=== PATIENT | female | born 1995 | race African-American/Black ===

== ENCOUNTER 2016-12-06 18:58 | Emergency (ER) | payer SELFPAY ==
[~2016-12-06] VITALS: Ht 149.9 cm; Wt 81.6 kg
[2016-12-06 19:12] VITALS: BP 133/77
[2016-12-06 19:27] LABS: BILIRUBIN,URINE NEGATIVE (NEG); GLUCOSE,URINE NEGATIVE (NEG); NITRITE,URINE NEGATIVE (NEG); PROTEIN,URINE NEGATIVE (NEG-TRACE); UROBILINOGEN,URINE 0.2 mg/dL (0.2 mg/dL)
[2016-12-06 19:34] LABS: BACTERIA,URINE FEW /HPF (0-FEW); RBC,URINE 20-40 /HPF (0-2); SQUAMOUS EPITHELIAL CELL,UR FEW /LPF
--- NOTE | 2016-12-06 19:34 | PHYS DOC ---
Past Medical History Past Medical History: No Pertinent History Past Surgical History: No Surgical History Alcohol Use: None Drug Use: None Adult General Chief Complaint Chief Complaint: VAGINAL BLEEDING HPI HPI Patient is a 21 year old female who presents with vaginal bleeding. Patient reports she had her last normal menstrual cycle in July, however it is not unusual for her to have significantly irregular periods, so she did not think too much about it. In October she took a test at home that was positive. However, due to work issues she was not able to see an ObGyn yet. She says one week ago she started having some light spotting, which increased to normal period-like bleeding yesterday and today. She says she has occasional sharp pelvic pains; no pain at this time, no clear inciting factors. No prior pregnancies. Review of Systems Review of Systems Constitutional: Denies fever or chills Eyes: Denies change in visual acuity or eye pain HENT: Denies nasal congestion or sore throat Respiratory: Denies cough or shortness of breath Cardiovascular: Denies chest pain GI: Denies abdominal pain, nausea, vomiting, bloody stools or diarrhea : Vaginal bleeding, occasional sharp pelvic pains Musculoskeletal: Denies back pain or joint pain Integument: Denies rash or skin lesions Neurologic: Denies headache, focal weakness or sensory changes Current Medications Current Medications Current Medications Medications (Trade) Dose Ordered Sig/Yuliet Start Time Stop Time Status Last Admin Dose Admin Potassium Chloride (Klor-Con) 20 meq 1X ONCE 12/06/16 21:00 12/06/16 21:01 Allergies Allergies Allergies Coded Allergies Type Severity Reaction Last Updated Verified Penicillins Allergy Unknown Hives 11/12/14 No Physical Exam Physical Exam Constitutional: Well developed, well nourished, no acute distress, non-toxic appearance HENT: Normocephalic, atraumatic, bilateral external ears normal Eyes: EOMI, conjunctiva normal, no discharge Neck: Normal range of motion, no stridor Cardiovascular: Heart rate normal, regular rhythm, no murmur Lungs & Thorax: Bilateral breath sounds clear to auscultation Abdomen: Bowel sounds normal, soft, non-distended, no TTP Pelvic: Scant dark blood in vault, no CMT or adnexal tenderness Skin: Warm, dry, no erythema, no rash Extremities: No obvious deformity, no edema Neurologic: Alert and oriented X 3, no gross deficits noted Psychologic: Affect normal, judgement normal, mood normal Current Patient Data Vital Signs Vital Signs Date Time Temp Pulse Resp B/P Pulse Ox O2 Delivery O2 Flow Rate FiO2 12/06/16 19:12 98.1 71 18 133/77 100 Room Air 98.1 Lab Values Laboratory Tests Test 12/06/16 19:05 12/06/16 19:10 12/06/16 19:40 Urine Collection Type Unknown Urine Color Yellow Urine Clarity Clear Urine pH 7.0 Urine Specific [place] 1.015 Urine Protein Negativemg/dL (NEG-TRACE) Urine Glucose (UA) Negativemg/dL (NEG) Urine Ketones (Stick) Tracemg/dL (NEG) Urine Blood Large (NEG) Urine Nitrite Negative (NEG) Urine Bilirubin Negative (NEG) Urine Urobilinogen Dipstick 0.2mg/dL (0.2 mg/dL) Urine Leukocyte Esterase Large (NEG) Urine RBC 20-40/HPF (0-2) Urine WBC 5-10/HPF (0-4) Urine Squamous Epithelial Cells Few/LPF Urine Bacteria Few/HPF (0-FEW) Urine Mucus Mod/LPF POC Urine HCG, Qualitative Hcg negative (Negative) White Blood Count 14.9x10^3/uL (4.0-11.0) H Red Blood Count 5.75x10^6/uL (3.50-5.40) H Hemoglobin 12.9g/dL (12.0-15.5) Hematocrit 41.0% (36.0-47.0) Mean Corpuscular Volume 71fL (79-100) L Mean Corpuscular Hemoglobin 22pg (25-35) L Mean Corpuscular Hemoglobin Concent 31g/dL (31-37) Red Cell Distribution Width 20.4% (11.5-14.5) H Platelet Count 281x10^3/uL (140-400) Neutrophils (%) (Auto) 72% (31-73) Lymphocytes (%) (Auto) 20% (24-48) L Monocytes (%) (Auto) 7% (0-9) Eosinophils (%) (Auto) 1% (0-3) Basophils (%) (Auto) 1% (0-3) Neutrophils # (Auto) 10.7x10^3uL (1.8-7.7) H Lymphocytes # (Auto) 3.0x10^3/uL (1.0-4.8) Monocytes # (Auto) 1.0x10^3/uL (0.0-1.1) Eosinophils # (Auto) 0.2x10^3/uL (0.0-0.7) Basophils # (Auto) 0.1x10^3/uL (0.0-0.2) Platelet Estimate Adequate (ADEQUATE) Hypochromasia Mod Anisocytosis Mod Microcytosis Mod Macrocytosis Maternal Serum HCG Beta Subunit 1mIU/mL (0-6) Sodium Level 143mmol/L (136-145) Potassium Level 3.4mmol/L (3.5-5.1) L Chloride Level 103mmol/L (98-107) Carbon Dioxide Level 30mmol/L (21-32) Anion Gap 10 (6-14) Blood Urea Nitrogen 6mg/dL (7-20) L Creatinine 0.7mg/dL (0.6-1.0) Estimated GFR (Cockcroft-Gault) 129.1 BUN/Creatinine Ratio 9 (6-20) Glucose Level 83mg/dL (70-99) Calcium Level 9.5mg/dL (8.5-10.1) Total Bilirubin 0.4mg/dL (0.2-1.0) Aspartate Amino Transferase (AST) 18U/L (15-37) Alanine Aminotransferase (ALT) 25U/L (14-59) Alkaline Phosphatase 128U/L (46-116) H Total Protein 8.9g/dL (6.4-8.2) H Albumin 3.9g/dL (3.4-5.0) Albumin/Globulin Ratio 0.8 (1.0-1.7) L Laboratory Tests 12/06/16 19:40 Laboratory Tests 12/06/16 19:40 Microbiology 12/06/16 Wet Prep - Final, Complete EKG EKG [] Radiology/Procedures Radiology/Procedures [] Course & Med Decision Making Course & Med Decision Making Pertinent Labs and Imaging studies reviewed. (See chart for details) Patient is 21 year old female who presents with vaginal bleeding. Possible menstrual cycle, possible miscarriage. Urine preg test in ED negative. Serum beta hcg level is 1, so effectively negative. UA with bacteria present, but patient denies symptoms of UTI so will not treat but will await culture. Labs otherwise notable for leukocytosis, mild hypokalemia. Oral potassium replacement ordered. Discussed results with patient, who remains asymptomatic except for bleeding. Will plan discharge with instructions for follow up with ObGyn, return precautions. Dragon Disclaimer Dragon Disclaimer This electronic medical record was generated, in whole or in part, using a voice recognition dictation system. Departure Departure Impression: Primary Impression: Abnormal menstrual cycle Disposition: HOME, SELF-CARE Condition: STABLE Referrals: ROSSY PORTILLO Jr, MD Patient Instructions: Abnormal Uterine Bleeding Additional Instructions: Thank you for allowing us to provide care today in the Emergency Department. Schedule a follow up appointment with an ObGyn using the provided contact information. Return promptly to the Emergency Department if you develop any new or concerning symptoms. JENNIFER VELEZ MD Dec 06, 2016 19:33
[2016-12-06 19:51] LABS: BASO # 0.1 x10^3/uL (0.0-0.2); BASO % 1 % (0-3); EOS % 1 % (0-3); HEMOGLOBIN 12.9 g/dL (12.0-15.5); LYMPH % 20 % (24-48); MEAN CORPUSCULAR HEMOGLOBIN 22 pg (25-35); MEAN CORPUSCULAR HGB CONC 31 g/dL (31-37); MEAN CORPUSCULAR VOLUME 71 fL (79-100); MONO % 7 % (0-9); NEUT % 72 % (31-73); PLATELET COUNT 281 x10^3/uL (140-400); RED BLOOD COUNT 5.75 x10^6/uL (3.50-5.40); RED CELL DISTRIBUTION WIDTH 20.4 % (11.5-14.5); WHITE BLOOD COUNT 14.9 x10^3/uL (4.0-11.0)
[2016-12-06 20:06] LABS: CALCIUM 9.5 mg/dL (8.5-10.1); CREATININE 0.7 mg/dL (0.6-1.0); GFR 129.1; POTASSIUM 3.4 mmol/L (3.5-5.1)
[2016-12-06 20:11] LABS: ALBUMIN 3.9 g/dL (3.4-5.0); ALBUMIN/GLOBULIN RATIO 0.8 (1.0-1.7); TOTAL BILIRUBIN 0.4 mg/dL (0.2-1.0); TOTAL PROTEIN 8.9 g/dL (6.4-8.2)
[2016-12-06 20:24] LABS: ANISOCYTOSIS MOD; HYPOCHROMIA MOD; MICROCYTOSIS MOD; PLT ESTIMATE ADEQUATE (ADEQUATE)
[2016-12-06] MEDS ORDERED: POTASSIUM CHLORIDE 20 MEQ TABLET.ER. PO ONE (21:00)
== END 2016-12-06 21:03 | disposition home or self-care (01) ==
LOC: ER 18:58
DX: N93.9 Abnormal uterine and vaginal bleeding, unspecified (principal); R10.2 Pelvic and perineal pain; E87.6 Hypokalemia; D72.829 Elevated white blood cell count, unspecified
CPT/HCPCS: 80053; 81001; 81025; 84702; 85007; 85027; 86900; 86901; 87086; 99284; Q0111; 36415; 87491; 87591

== ENCOUNTER 2017-05-25 08:34 | Emergency (ER) | payer SELFPAY ==
[~2017-05-25] VITALS: Ht 149.9 cm; Wt 81.6 kg
[2017-05-25 08:50] VITALS: BP 142/66
[2017-05-25 09:37] LABS: BASO # 0.1 x10^3/uL (0.0-0.2); BASO % 1 % (0-3); EOS % 3 % (0-3); HEMATOCRIT 38.9 % (36.0-47.0); HEMOGLOBIN 12.9 g/dL (12.0-15.5); LYMPH % 28 % (24-48); MEAN CORPUSCULAR HEMOGLOBIN 25 pg (25-35); MEAN CORPUSCULAR HGB CONC 33 g/dL (31-37); MEAN CORPUSCULAR VOLUME 76 fL (79-100); MONO % 9 % (0-9); NEUT % 59 % (31-73); PLATELET COUNT 315 x10^3/uL (140-400); RED BLOOD COUNT 5.11 x10^6/uL (3.50-5.40); RED CELL DISTRIBUTION WIDTH 15.1 % (11.5-14.5); WHITE BLOOD COUNT 7.2 x10^3/uL (4.0-11.0)
[2017-05-25 09:48] LABS: CALCIUM 8.3 mg/dL (8.5-10.1); CREATININE 0.8 mg/dL (0.6-1.0); GFR 109.6; POTASSIUM 3.4 mmol/L (3.5-5.1)
[2017-05-25 09:51] LABS: NEG OBC SER NEG; POS OBC SER POS
[2017-05-25 09:54] LABS: ALBUMIN 3.7 g/dL (3.4-5.0); ALBUMIN/GLOBULIN RATIO 0.9 (1.0-1.7); TOTAL BILIRUBIN 0.3 mg/dL (0.2-1.0); TOTAL PROTEIN 7.7 g/dL (6.4-8.2)
--- NOTE | 2017-05-25 10:31 | RAD ---
Pelvic ultrasound to include transabdominal and transvaginal imaging May 25, 2017 Clinical history: Patient recently had a positive test which is now negative. Vaginal bleeding. Technique: Using the distended urinary bladder as a sonographic window, a real-time ultrasound examination of the pelvis was performed. Additionally in attempt to better evaluate the uterus and adnexa, a transvaginal pelvic was performed. Multiple images were obtained. Findings: The uterus is within normal limits in size and echogenicity. It measures 6.4 x 4.9 x 4.1 cm in longitudinal, transverse, and AP dimensions. The endometrial echo complex measures 6 mm in thickness which is within normal limits. No gestational sac is seen within the endometrial canal of the uterus. No retained products are seen. Both ovaries are within normal limits in size and echogenicity. The right ovary measures 3.7 x 1.9 x 1.9 cm in size. Left ovary measures 3.5 x 2.2 x 2.2 cm in size. No adnexal mass is noted. No free fluid is seen. Impression: Negative study.
--- NOTE | 2017-05-25 10:39 | PHYS DOC ---
Past Medical History Past Medical History: No Pertinent History Past Surgical History: No Surgical History Alcohol Use: None Drug Use: None Adult General Chief Complaint Chief Complaint: VAGINAL BLEEDING HPI HPI Patient is a 22 year old female who states she had a positive test and a clinic presents with the complaint of vaginal bleeding which is about as heavy as a period that started today. She has crampy sensation but no pain. She does have an appointment to see a new OB doctor coming up this week. The patient has not been in the past. She was trying to conceive so not surprised that she was . Review of Systems Review of Systems Constitutional: Denies fever or chills [] Respiratory: Denies cough or shortness of breath [] GI: Denies abdominal pain, nausea, vomiting, bloody stools or diarrhea [] : As in history of present illness Allergies Allergies Allergies Coded Allergies Type Severity Reaction Last Updated Verified Penicillins Allergy Unknown Hives 11/12/14 No Physical Exam Physical Exam Constitutional: Well developed, well nourished, no acute distress, non-toxic appearance. Alert, mentating normally, warm and dry. HENT: Normocephalic, atraumatic, bilateral external ears normal, nose normal. [ ] Eyes: conjunctiva normal, no discharge. [] Neck: Normal range of motion, no stridor. [] Cardiovascular:Heart rate regular rhythm, no murmur [] Lungs & Thorax: Bilateral breath sounds clear to auscultation [] Abdomen: Bowel sounds normal, soft, no tenderness, no masses, no pulsatile masses. [] Skin: Warm, dry, no erythema, no rash. [] Extremities: No tenderness, no cyanosis, no clubbing, ROM intact, no edema. [] Neurologic: Alert and oriented X 3, normal motor function, normal sensory function, no focal deficits noted. [] Current Patient Data Vital Signs Vital Signs Date Time Temp Pulse Resp B/P (MAP) Pulse Ox O2 Delivery O2 Flow Rate FiO2 05/25/17 08:50 98.9 99 18 142/66 (91) 100 Room Air 98.9 Lab Values Laboratory Tests Test 05/25/17 08:00 05/25/17 09:05 POC Urine HCG, Qualitative Hcg negative (Negative) White Blood Count 7.2 x10^3/uL (4.0-11.0) Red Blood Count 5.11 x10^6/uL (3.50-5.40) Hemoglobin 12.9 g/dL (12.0-15.5) Hematocrit 38.9 % (36.0-47.0) Mean Corpuscular Volume 76 fL (79-100) L Mean Corpuscular Hemoglobin 25 pg (25-35) Mean Corpuscular Hemoglobin Concent 33 g/dL (31-37) Red Cell Distribution Width 15.1 % (11.5-14.5) H Platelet Count 315 x10^3/uL (140-400) Neutrophils (%) (Auto) 59 % (31-73) Lymphocytes (%) (Auto) 28 % (24-48) Monocytes (%) (Auto) 9 % (0-9) Eosinophils (%) (Auto) 3 % (0-3) Basophils (%) (Auto) 1 % (0-3) Neutrophils # (Auto) 4.2 x10^3uL (1.8-7.7) Lymphocytes # (Auto) 2.0 x10^3/uL (1.0-4.8) Monocytes # (Auto) 0.7 x10^3/uL (0.0-1.1) Eosinophils # (Auto) 0.2 x10^3/uL (0.0-0.7) Basophils # (Auto) 0.1 x10^3/uL (0.0-0.2) Sodium Level 141 mmol/L (136-145) Potassium Level 3.4 mmol/L (3.5-5.1) L Chloride Level 105 mmol/L (98-107) Carbon Dioxide Level 29 mmol/L (21-32) Anion Gap 7 (6-14) Blood Urea Nitrogen 10 mg/dL (7-20) Creatinine 0.8 mg/dL (0.6-1.0) Estimated GFR (Cockcroft-Gault) 109.6 BUN/Creatinine Ratio 13 (6-20) Glucose Level 114 mg/dL (70-99) H Calcium Level 8.3 mg/dL (8.5-10.1) L Total Bilirubin 0.3 mg/dL (0.2-1.0) Aspartate Amino Transferase (AST) 21 U/L (15-37) Alanine Aminotransferase (ALT) 36 U/L (14-59) Alkaline Phosphatase 108 U/L (46-116) Total Protein 7.7 g/dL (6.4-8.2) Albumin 3.7 g/dL (3.4-5.0) Albumin/Globulin Ratio 0.9 (1.0-1.7) L Serum Test, Qualitative Negative (NEG) Laboratory Tests 05/25/17 09:05 Laboratory Tests 05/25/17 09:05 EKG EKG [] Radiology/Procedures Radiology/Procedures STATUS: REG ER ORD. PHYSICIAN: HUSSAIN MARSHALL MD REASON: pt had pos preg test in clinic, now neg preg test, spotting PROCEDURE: PELVIS W/TV Pelvic ultrasound to include transabdominal and transvaginal imaging May 25, 2017 Clinical history: Patient recently had a positive test which is now negative. Vaginal bleeding. Technique: Using the distended urinary bladder as a sonographic window, a real-time ultrasound examination of the pelvis was performed. Additionally in attempt to better evaluate the uterus and adnexa, a transvaginal pelvic was performed. Multiple images were obtained. Findings: The uterus is within normal limits in size and echogenicity. It measures 6.4 x 4.9 x 4.1 cm in longitudinal, transverse, and AP dimensions. The endometrial echo complex measures 6 mm in thickness which is within normal limits. No gestational sac is seen within the endometrial canal of the uterus. No retained products are seen. Both ovaries are within normal limits in size and echogenicity. The right ovary measures 3.7 x 1.9 x 1.9 cm in size. Left ovary measures 3.5 x 2.2 x 2.2 cm in size. No adnexal mass is noted. No free fluid is seen. Impression: Negative study. [] Course & Med Decision Making Course & Med Decision Making Pertinent Labs and Imaging studies reviewed. (See chart for details) 22-year-old female who had a positive test presents with vaginal bleeding. However, her test in the ED today is negative. Ultrasound was also unremarkable. I discussed this with the patient. It's unclear whether she had a very early missed AB and is now having a menstrual period. In any event, the patient is not with a normal ultrasound, at this time she is stable for discharge. She will follow-up with her [facility] physician as an outpatient. [] Dragon Disclaimer Dragon Disclaimer This electronic medical record was generated, in whole or in part, using a voice recognition dictation system. Departure Departure Impression: Primary Impression: Not currently Disposition: HOME, SELF-CARE Condition: STABLE Referrals: NO PCP (PCP) Additional Instructions: Today in emergency, test was negative and ultrasound was normal. You are not . There is nothing abnormal in your uterus. I expect that you may have a period at this time. You were given the ultrasound report to show to your OB doctor if necessary. HUSSAIN MARSHALL MD May 25, 2017 10:39
== END 2017-05-25 10:49 | disposition home or self-care (01) ==
LOC: ER 08:34
DX: N93.9 Abnormal uterine and vaginal bleeding, unspecified (principal); Z88.0 Allergy status to penicillin
CPT/HCPCS: 36415; 76830; 76856; 80053; 81025; 84703; 85025; 99285-25

== ENCOUNTER 2020-07-05 11:32 | Emergency (ER) | payer OTHER ==
[~2020-07-05] VITALS: Ht 149.9 cm; Wt 81.0 kg
[2020-07-05 13:47] LABS: BILIRUBIN,URINE NEGATIVE (NEG); CLARITY,URINE CLEAR; COLOR,URINE YELLOW; NITRITE,URINE NEGATIVE (NEG); PROTEIN,URINE NEGATIVE (NEG-TRACE); UROBILINOGEN,URINE 0.2 mg/dL (0.2 mg/dL)
[2020-07-05 13:59] LABS: BASO # 0.1 x10^3/uL (0.0-0.2); BASO % 1 % (0-3); EOS # 0.2 x10^3/uL (0.0-0.7); EOS % 2 % (0-3); HEMATOCRIT 35.7 % (36.0-47.0); HEMOGLOBIN 12.2 g/dL (12.0-15.5); LYMPH # 1.8 x10^3/uL (1.0-4.8); LYMPH % 19 % (24-48); MEAN CORPUSCULAR HEMOGLOBIN 26 pg (25-35); MEAN CORPUSCULAR HGB CONC 34 g/dL (31-37); MEAN CORPUSCULAR VOLUME 75 fL (79-100); MONO # 0.9 x10^3/uL (0.0-1.1); MONO % 9 % (0-9); NEUT # 6.8 x10^3/uL (1.8-7.7); NEUT % 70 % (31-73); PLATELET COUNT 311 x10^3/uL (140-400); RED BLOOD COUNT 4.76 x10^6/uL (3.50-5.40); RED CELL DISTRIBUTION WIDTH 15.2 % (11.5-14.5); WHITE BLOOD COUNT 9.7 x10^3/uL (4.0-11.0)
[2020-07-05 14:01] LABS: BACTERIA,URINE 0 /HPF (0-FEW); RBC,URINE 0 /HPF (0-2); SQUAMOUS EPITHELIAL CELL,UR MOD /LPF; WBC,URINE 0 /HPF (0-4)
[2020-07-05 14:06] LABS: CREATININE 0.6 mg/dL (0.6-1.0); GFR 148.6; POTASSIUM 3.4 mmol/L (3.5-5.1)
[2020-07-05 14:16] LABS: ALBUMIN 3.7 g/dL (3.4-5.0); ALBUMIN/GLOBULIN RATIO 1.1 (1.0-1.7); TOTAL BILIRUBIN 0.4 mg/dL (0.2-1.0); TOTAL PROTEIN 7.1 g/dL (6.4-8.2)
--- NOTE | 2020-07-05 14:22 | PHYS DOC ---
Past Medical History Past Medical History: No Pertinent History Past Surgical History: No Surgical History Smoking Status: Current Every Day Smoker Alcohol Use: None Drug Use: None General Adult EDM: Chief Complaint: TEST HPI: HPI: Patient is a 25 year old female who presents with last menstrual period May 22. She stated that for 1 week she had some light lower abdominal cramping and some spotting. She is G4, P0. She does have an OB doctor that is Jordi Hillman at [facility]. She does have a positive test today. She came in for a test. She states that she has had some nausea but also was taking clindamycin for a tooth abscess which could be attributing to her nausea and vomiting. Patient denies currently any abdominal pain, vaginal bleeding, abnormal vaginal discharge, dysuria, back pain, fever, cough, shortness of breath, chest pain. She states that she does not currently have an appointment with her OB doctor. Review of Systems: Review of Systems: Constitutional: Denies fever or chills. [] Eyes: Denies change in visual acuity. [] HENT: Denies nasal congestion or sore throat. [] Respiratory: Denies cough or shortness of breath. [] Cardiovascular: Denies chest pain or edema. [] GI: Intermittent cramping abdominal pain 1 week ago, Intermittent and nausea, vomiting, denies bloody stools or diarrhea. [] : Denies dysuria. Vaginal spotting x1 week ago. [] Musculoskeletal: Denies back pain or joint pain. [] Integument: Denies rash. [] Neurologic: Denies headache, focal weakness or sensory changes. [] Endocrine: Denies polyuria or polydipsia. [] Lymphatic: Denies swollen glands. [] Psychiatric: Denies depression or anxiety. [] Heart Score: Risk Factors: Risk Factors: DM, Current or recent (<one month) smoker, HTN, HLP, family history of CAD, obesity. Risk Scores: Score 0 - 3: 2.5% MACE over next 6 weeks - Discharge Home Score 4 - 6: 20.3% MACE over next 6 weeks - Admit for Clinical Observation Score 7 - 10: 72.7% MACE over next 6 weeks - Early Invasive Strategies Allergies: Allergies: Allergies Coded Allergies Type Severity Reaction Last Updated Verified Penicillins Allergy Unknown Hives 11/12/14 No Physical Exam: PE: Constitutional: Well developed, well nourished, no acute distress, non-toxic appearance. [] HENT: Normocephalic, atraumatic, bilateral external ears normal, oropharynx moist, no oral exudates, nose normal. [] Eyes: PERRLA, EOMI, conjunctiva normal, no discharge. [] Neck: Normal range of motion, no tenderness, supple, no stridor. [] Cardiovascular:Heart rate regular rhythm, no murmur [] Lungs & Thorax: Bilateral breath sounds clear to auscultation [] Abdomen: Bowel sounds normal, soft, no tenderness, no masses, no pulsatile masses. [] Skin: Warm, dry, no erythema, no rash. [] Back: No tenderness, no CVA tenderness. [] Extremities: No tenderness, no cyanosis, no clubbing, ROM intact, no edema. [] Neurologic: Alert and oriented X 3, normal motor function, normal sensory function, no focal deficits noted. [] Psychologic: Affect normal, judgement normal, mood normal. Normal physical exam [] Current Patient Data: Labs: Laboratory Tests Test 07/05/20 11:30 07/05/20 12:57 07/05/20 13:45 Urine Collection Type Unknown Urine Color Yellow Urine Clarity Clear Urine pH 7.0 (<5.0-8.0) Urine Specific [place] 1.010 (1.000-1.030) Urine Protein Negative mg/dL (NEG-TRACE) Urine Glucose (UA) Negative mg/dL (NEG) Urine Ketones (Stick) 40 mg/dL (NEG) Urine Blood Negative (NEG) Urine Nitrite Negative (NEG) Urine Bilirubin Negative (NEG) Urine Urobilinogen Dipstick 0.2 mg/dL (0.2 mg/dL) Urine Leukocyte Esterase Negative (NEG) Urine RBC 0 /HPF (0-2) Urine WBC 0 /HPF (0-4) Urine Squamous Epithelial Cells Mod /LPF Urine Bacteria 0 /HPF (0-FEW) POC Urine HCG, Qualitative Hcg positive (Negative) White Blood Count 9.7 x10^3/uL (4.0-11.0) Red Blood Count 4.76 x10^6/uL (3.50-5.40) Hemoglobin 12.2 g/dL (12.0-15.5) Hematocrit 35.7 % (36.0-47.0) L Mean Corpuscular Volume 75 fL (79-100) L Mean Corpuscular Hemoglobin 26 pg (25-35) Mean Corpuscular Hemoglobin Concent 34 g/dL (31-37) Red Cell Distribution Width 15.2 % (11.5-14.5) H Platelet Count 311 x10^3/uL (140-400) Neutrophils (%) (Auto) 70 % (31-73) Lymphocytes (%) (Auto) 19 % (24-48) L Monocytes (%) (Auto) 9 % (0-9) Eosinophils (%) (Auto) 2 % (0-3) Basophils (%) (Auto) 1 % (0-3) Neutrophils # (Auto) 6.8 x10^3/uL (1.8-7.7) Lymphocytes # (Auto) 1.8 x10^3/uL (1.0-4.8) Monocytes # (Auto) 0.9 x10^3/uL (0.0-1.1) Eosinophils # (Auto) 0.2 x10^3/uL (0.0-0.7) Basophils # (Auto) 0.1 x10^3/uL (0.0-0.2) Sodium Level 133 mmol/L (136-145) L Potassium Level 3.4 mmol/L (3.5-5.1) L Chloride Level 101 mmol/L (98-107) Carbon Dioxide Level 24 mmol/L (21-32) Anion Gap 8 (6-14) Blood Urea Nitrogen 5 mg/dL (7-20) L Creatinine 0.6 mg/dL (0.6-1.0) Estimated GFR (Cockcroft-Gault) 148.6 BUN/Creatinine Ratio 8 (6-20) Glucose Level 82 mg/dL (70-99) Calcium Level 9.0 mg/dL (8.5-10.1) Total Bilirubin Pending Aspartate Amino Transferase (AST) Pending Alanine Aminotransferase (ALT) Pending Alkaline Phosphatase Pending Total Protein Pending Albumin Pending Albumin/Globulin Ratio Pending Laboratory Tests 07/05/20 13:45 Laboratory Tests 07/05/20 13:45 Vital Signs: Vital Signs Date Time Temp Pulse Resp B/P (MAP) Pulse Ox O2 Delivery O2 Flow Rate FiO2 07/05/20 12:57 99.2 80 18 126/71 (89) 99 Room Air 99.2 EKG: EKG: [] Radiology/Procedures: Radiology/Procedures: [] Course & Med Decision Making: Course & Med Decision Making Pertinent Labs and Imaging studies reviewed. (See chart for details) See HPI. Alert and oriented x4. Ambulatory with steady gait. Abdomen is soft and nontender. No CVA tenderness. No extremity swelling. Vital signs within normal limits. Blood work unremarkable. No urinary tract infection. Patient states she is keeping food and fluids down. Patient remained stable. She is to follow-up with her OB doctor soon as possible. [] Dragon Disclaimer: Dragon Disclaimer: This electronic medical record was generated, in whole or in part, using a voice recognition dictation system. Departure Departure Impression: Primary Impression: test positive Disposition: 01 HOME, SELF-CARE Condition: STABLE Referrals: NO PCP (PCP) Patient Instructions: ABCs of Additional Instructions: Follow-up with your OB doctor soon as possible. Drink plenty of fluids. If you begin having heavy vaginal bleeding or severe abdominal pain return to the emergency room. Scripts Ondansetron (ONDANSETRON ODT) 4 Mg Tab.rapdis 1 TAB PO PRN Q6-8HRS, #16 TAB Prov: LARRY PACHECO [employer]BUTION SUPERVISOR 07/05/20 Justicifation of Admission Dx: Justifications for Admission: Justification of Admission Dx: N/A LARRY PACHECO APRN Jul 05, 2020 14:22
[2020-07-05] MEDS ORDERED: ONDA4TAB12 PO (14:46)
[2020-07-05 15:00] VITALS: BP 122/61
== END 2020-07-05 15:05 | disposition home or self-care (01) ==
LOC: ER 11:32
DX: O26.891 Other specified pregnancy related conditions, first trimester (principal); O21.9 Vomiting of pregnancy, unspecified; R10.30 Lower abdominal pain, unspecified; F17.200 Nicotine dependence, unspecified, uncomplicated; Z3A.01 Less than 8 weeks gestation of pregnancy
CPT/HCPCS: 36415; 80053; 81001; 81025; 84702; 85025; 99283

== ENCOUNTER → 2020-07-21 | Outpatient (CLI) | payer OTHER ==
[2020-07-05 15:00] VITALS: BP 122/61
[~2020-07-21] MED LIST: ONDA4TAB12 PO
--- NOTE | 2020-07-21 14:56 | RAD ---
EXAM: First Trimester OB Ultrasound INDICATION: Reason: SIZE AND DATES / Spl. Instructions: / History: TECHNIQUE: Real-time first trimester obstetrical ultrasound was performed with permanent freeze-frame documentation. COMPARISON: None. FINDINGS: GESTATIONAL SAC: Gestational sac shape and amniotic fluid volume within normal limits. Gestational sac size of 3.7 cm corresponds with 9 weeks and 1 day. Interior-rump length of 1.7 cm corresponds with 8 weeks and 1 day. POLE: Unremarkable. Yolk sac not well seen. CROWN RUMP LENGTH: 1.7 cm HEART RATE: 155 bpm PLACENTA: Too early to adequately assess. MATERNAL UTERUS: Unremarkable. Cervical length measures 3.2 cm MATERNAL ADNEXA: Normal. Right ovary measures 3.2 x 3.2 x 2.2 cm. Left ovary measures 3.7 x 3.1 x 2 cm. Trace free fluid in the cul-de-sac. AGE/DATES: Gestational Age by LMP: 8 weeks 4 days Gestational Age by US: 8 weeks 4 days EDC by LMP: February 26, 2021 EDC by US: February 26, 2021 IMPRESSION: Normal viable first trimester OB ultrasound. Estimated gestational age of 8 weeks 4 days and EDC of February 26, 2021. Electronically signed by: Yash Vuong MD (07/21/2020 2:53 PM) [id number]
== END ==
LOC: US 09:11
PROVIDERS: ATTEND Obstetrics & Gynecology
DX: Z34.91 Encounter for supervision of normal pregnancy, unspecified, first trimester (principal); Z3A.08 8 weeks gestation of pregnancy
CPT/HCPCS: 76801

== ENCOUNTER 2020-08-29 17:48 | Emergency (ER) | payer OTHER ==
[~2020-08-29] VITALS: Ht 149.9 cm; Wt 75.0 kg
--- NOTE | 2020-08-29 18:22 | PHYS DOC ---
Past Medical History Past Medical History: No Pertinent History Past Surgical History: No Surgical History Smoking Status: Current Every Day Smoker Alcohol Use: None Drug Use: None General Adult EDM: Chief Complaint: VAGINAL BLEEDING HPI: HPI: Patient is a 25 year old female who presents with for the last week she has had intermittent spotting and bleeding in and last week saw Dr. Rothman here at [place] who is her BRICKLAYER SUPERVISOR. He stated that as long as she was not going through more than 1 pad or she was getting uncomfortable that she could come into the emergency room. She states today she was standing cooking dinner when she felt blood running down her leg. She states that she is not going through more than 1 pad a hour. She states she did have one large clot. Patient denies any pain, dizziness, nausea, vomiting, diarrhea, fever, urinary symptoms, headache, numbness or tingling, shortness of breath, chest pain. She has a history of 3 other miscarriages. Review of Systems: Review of Systems: Constitutional: Denies fever or chills. [] Eyes: Denies change in visual acuity. [] HENT: Denies nasal congestion or sore throat. [] Respiratory: Denies cough or shortness of breath. [] Cardiovascular: Denies chest pain or edema. [] GI: Denies abdominal pain, nausea, vomiting, bloody stools or diarrhea. [] : Denies dysuria. +Vaginal bleeding [] Musculoskeletal: Denies back pain or joint pain. [] Integument: Denies rash. [] Neurologic: Denies headache, focal weakness or sensory changes. [] Endocrine: Denies polyuria or polydipsia. [] Lymphatic: Denies swollen glands. [] Psychiatric: Denies depression or anxiety. [] Heart Score: Risk Factors: Risk Factors: DM, Current or recent (<one month) smoker, HTN, HLP, family history of CAD, obesity. Risk Scores: Score 0 - 3: 2.5% MACE over next 6 weeks - Discharge Home Score 4 - 6: 20.3% MACE over next 6 weeks - Admit for Clinical Observation Score 7 - 10: 72.7% MACE over next 6 weeks - Early Invasive Strategies Allergies: Allergies: Allergies Coded Allergies Type Severity Reaction Last Updated Verified Penicillins Allergy Unknown Hives 11/12/14 No Physical Exam: PE: Constitutional: Well developed, well nourished, no acute distress, non-toxic appearance. [] HENT: Normocephalic, atraumatic, bilateral external ears normal, oropharynx moist, no oral exudates, nose normal. [] Eyes: PERRLA, EOMI, conjunctiva normal, no discharge. [] Neck: Normal range of motion, no tenderness, supple, no stridor. [] Cardiovascular:Heart rate regular rhythm, no murmur [] Lungs & Thorax: Bilateral breath sounds clear to auscultation [] Abdomen: Bowel sounds normal, soft, no tenderness, no masses, no pulsatile masses. [] Skin: Warm, dry, no erythema, no rash. [] Back: No tenderness, no CVA tenderness. [] Extremities: No tenderness, no cyanosis, no clubbing, ROM intact, no edema. [] Neurologic: Alert and oriented X 3, normal motor function, normal sensory function, no focal deficits noted. [] Psychologic: Affect normal, judgement normal, mood normal. Normal physical exam [] Current Patient Data: Labs: Laboratory Tests Test 08/29/20 18:08 POC Urine HCG, Qualitative Hcg positive (Negative) EKG: EKG: [] Radiology/Procedures: Radiology/Procedures: [] Impression: [facility] [address] [place] [address] IMAGING REPORT Signed PATIENT: SURY VAZQUEZ ACCOUNT: [id number] : 1995 LOCATION: ER AGE: 25 SEX: F EXAM STATUS: REG ER ORD. PHYSICIAN: LARRY PACHECO APRN REASON: and bleeding, 15 weeks PROCEDURE: OB LIMITED Exam: Ultrasound OB limited Indication: and bleeding, 15 weeks Technique: Real-time grayscale and color Doppler images of the pelvis were obtained by the department paving plant operator. Comparisons: None FINDINGS: Within the uterus there is a single live intrauterine gestation with heart rate measured at 152 bpm. measurements as follows: BPD: 2.2 cm corresponding to 13 weeks 4 days Head circumference: 9.4 cm corresponding to 14 weeks 2 days Abdominal circumference: 7.7 cm corresponding to 14 weeks 1 day Femur length: 1.2 cm corresponding to 13 weeks 1 day Status post posterior and has a normal appearance. Cervix is 5 cm in length. IMPRESSION: 1. Single live intrauterine gestation of 14 weeks 1 day by LMP and prior ultrasound with appropriate growth. PHAN is 02/26/2021 2. Dedicated survey is recommended to 18-20 weeks gestation. Electronically signed by: Virginia Zepeda MD (08/29/2020 7:18 PM) [facility] DICTATED and SIGNED BY: VIRGINIA ZEPEDA MD DATE: 08/29/201917 Course & Med Decision Making: Course & Med Decision Making And he states to have the patient follow-up sooner.Pertinent Labs and Imaging studies reviewed. (See chart for details) See HPI. Abdomen is soft and nontender. Skin pink warm and dry. Speaks in full complete sentences. Alert and oriented x4. Vital signs within normal limits. Pelvic Exam: Key Bed Installer present Abdomen: Nontender External Genitalia: Normal Skin Speculum: Normal vaginal mucosa, small bloody cervical discharge, cervical os closed Bimanual: No adnexal masses or tenderness, No CMT I spoke to Dr. Rothman who is the patient's BRICKLAYER SUPERVISOR. He states to have the patient follow-up sooner. He states for her to call in the morning to get a sooner appointment. [] Dragon Disclaimer: Dragon Disclaimer: This electronic medical record was generated, in whole or in part, using a voice recognition dictation system. Departure Departure Impression: Primary Impression: Vaginal bleeding in Disposition: 01 DC HOME SELF CARE/HOMELESS Condition: STABLE Referrals: NO PCP (PCP) KAY ROTHMAN MD Patient Instructions: Vaginal Bleeding During , [id number] Additional Instructions: Dr. Rothman states to call the office in the morning to get a sooner appointment. Refrain from sexual intercourse until you are seen. If you given bleeding more than 1 pad an hour return to the emergency room. LARRY PACHECO AMBULANCE ASSISTANT Aug 29, 2020 18:22
[2020-08-29 18:23] VITALS: BP 144/82
[2020-08-29 18:33] LABS: BASO # 0.1 x10^3/uL (0.0-0.2); BASO % 1 % (0-3); EOS # 0.2 x10^3/uL (0.0-0.7); EOS % 2 % (0-3); HEMATOCRIT 34.4 % (36.0-47.0); HEMOGLOBIN 11.7 g/dL (12.0-15.5); LYMPH # 2.6 x10^3/uL (1.0-4.8); LYMPH % 22 % (24-48); MEAN CORPUSCULAR HEMOGLOBIN 25 pg (25-35); MEAN CORPUSCULAR HGB CONC 34 g/dL (31-37); MEAN CORPUSCULAR VOLUME 74 fL (79-100); MONO # 0.8 x10^3/uL (0.0-1.1); MONO % 7 % (0-9); NEUT % 69 % (31-73); PLATELET COUNT 325 x10^3/uL (140-400); RED BLOOD COUNT 4.67 x10^6/uL (3.50-5.40); RED CELL DISTRIBUTION WIDTH 15.3 % (11.5-14.5); WHITE BLOOD COUNT 11.7 x10^3/uL (4.0-11.0)
[2020-08-29 18:40] LABS: CREATININE 0.7 mg/dL (0.6-1.0); GFR 124.4; POTASSIUM 3.2 mmol/L (3.5-5.1)
[2020-08-29 18:46] LABS: ALBUMIN 3.3 g/dL (3.4-5.0); ALBUMIN/GLOBULIN RATIO 0.8 (1.0-1.7); TOTAL BILIRUBIN 0.3 mg/dL (0.2-1.0); TOTAL PROTEIN 7.3 g/dL (6.4-8.2)
--- NOTE | 2020-08-29 19:21 | RAD ---
Exam: Ultrasound OB limited Indication: and bleeding, 15 weeks Technique: Real-time grayscale and color Doppler images of the pelvis were obtained by the department air pollution compliance inspector. Comparisons: None FINDINGS: Within the uterus there is a single live intrauterine gestation with heart rate measured at 152 bpm. measurements as follows: BPD: 2.2 cm corresponding to 13 weeks 4 days Head circumference: 9.4 cm corresponding to 14 weeks 2 days Abdominal circumference: 7.7 cm corresponding to 14 weeks 1 day Femur length: 1.2 cm corresponding to 13 weeks 1 day Status post posterior and has a normal appearance. Cervix is 5 cm in length. IMPRESSION: 1. Single live intrauterine gestation of 14 weeks 1 day by LMP and prior ultrasound with appropriate growth. PHAN is 02/26/2021 2. Dedicated survey is recommended to 18-20 weeks gestation. Electronically signed by: Virginia Martinez MD (08/29/2020 7:18 PM) [facility]
[2020-08-29 19:23] LABS: BILIRUBIN,URINE NEGATIVE (NEG); CLARITY,URINE CLOUDY; COLOR,URINE AMBER; NITRITE,URINE NEGATIVE (NEG); PROTEIN,URINE NEGATIVE (NEG-TRACE)
[2020-08-29 19:30] LABS: BACTERIA,URINE FEW /HPF (0-FEW); RBC,URINE >40 /HPF (0-2); WBC,URINE OCC /HPF (0-4)
== END 2020-08-29 21:20 | disposition home or self-care (01) ==
LOC: ER 17:48
DX: O46.91 Antepartum hemorrhage, unspecified, first trimester (principal); F17.200 Nicotine dependence, unspecified, uncomplicated; Z3A.14 14 weeks gestation of pregnancy
CPT/HCPCS: 36415; 76815; 80053; 81001; 81025; 84702; 85025; 86850; 86900; 86901; 99284